=== PATIENT | male | born 1955 | race Caucasian/White ===

== ENCOUNTER 2017-10-08 09:55 | Day surgery (SDC) | payer OTHER ==
[~2017-10-08] VITALS: Ht 182.9 cm; Wt 127.9 kg
[~2017-10-08 09:55] MED LIST: ? HTN MED; ALLO300 PO; AMLO5 PO; Aldactone50 MG PO; Ativan1 MG PO; CARV3.125 PO; CEPH500 PO; CITA20 PO; COLE625 PO; CYAN100 PO; Diovan320 MG PO; FEBU40TA PO; FLUO20 PO; FOLI1 PO; GABA600 PO; HYDACE5 PO; HYDCHL25 PO; HYDR1TAB94 PO; INDO50 PO; LISI20 PO; LORA2 PO; MULVIT; Multivitamin1 EAC2 PO; OMEP10ER PO; OMEP20ER PO; PANT40 PO; PERI2 PO; PERI4 PO; SPIR50 PO; SUBOXONE 8 MG-1 EACH SL; SULTRIDS PO; THIA100 PO; TRAZ50 PO; VALS80 PO; VITAMIN B-1 PO; [UNRECOGNIZED DRUG - REMARK]; [UNRECOGNIZED DRUG - REMARK]
== END 2017-10-08 12:00 | disposition home or self-care (01) ==
LOC: ORSCSDS 09:55
PROVIDERS: Internal Medicine Gastroenterology
PROC: 0DJD8ZZ Inspection of Lower Intestinal Tract, Via Natural or Artificial Opening Endoscopic (ICD-10-PCS; principal; 2017-10-08 11:15)
PROC: 0DJ08ZZ Inspection of Upper Intestinal Tract, Via Natural or Artificial Opening Endoscopic (ICD-10-PCS; principal; 2017-10-08 11:15)
DX: K25.9 Gastric ulcer, unspecified as acute or chronic, without hemorrhage or perforation (principal); B19.20 Unspecified viral hepatitis C without hepatic coma; Z86.010 Personal history of colon polyps; K57.30 Diverticulosis of large intestine without perforation or abscess without bleeding; K64.8 Other hemorrhoids; G47.33 Obstructive sleep apnea (adult) (pediatric); I10 Essential (primary) hypertension; E78.5 Hyperlipidemia, unspecified; Z87.891 Personal history of nicotine dependence; E66.01 Morbid (severe) obesity due to excess calories; Z68.39 Body mass index [BMI] 39.0-39.9, adult
CPT/HCPCS: J1980; J2250

== ENCOUNTER 2019-08-24 22:06 | Emergency (ER) | payer OTHER ==
[~2019-08-24] VITALS: Ht 182.9 cm; Wt 131.5 kg
[2019-08-24 22:28] LABS: BASOPHILS ABSOLUTE AUTO 0.02 K/mm3 (0.00-0.23); BASOPHILS PERCENT AUTO 0 % (0-2); EOSINOPHILS ABSOLUTE AUTO 0.16 K/mm3 (0.00-0.68); EOSINOPHILS PERCENT AUTO 1 % (0-6); Hematocrit 50.1 % (37.0-53.0); Hemoglobin 17.3 g/dL (13.5-17.5); IMMATURE GRAN ABSOLUTE AUTO 0.04 K/mm3 (0.00-0.10); IMMATURE GRAN PERCENT AUTO 0 % (0-1); LYMPHOCYTES ABSOLUTE AUTO 6.36 K/mm3 (0.84-5.20); LYMPHOCYTES PERCENT AUTO 51 % (21-46); MONOCYTES ABSOLUTE AUTO 0.66 K/mm3 (0.16-1.47); MONOCYTES PERCENT AUTO 5 % (4-13); Mean Corpuscular HGB Conc 34.5 g/dL (31.5-36.5); Mean Corpuscular Volume 93 fL (80-100); Mean Platelet Volume 10.3 fL (9.1-12.4); NEUTROPHILS ABSOLUTE AUTO 5.16 K/mm3 (1.96-9.15); NEUTROPHILS PERCENT AUTO 42 % (41-73); Platelet Count 210 K/mm3 (150-400); RDW Coefficient Variation 12.5 % (11.7-14.2); RDW Standard Deviation 42.3 fL (35.1-46.3); Red Blood Cell Count 5.41 M/mm3 (4.30-5.90)
[2019-08-24] MEDS ORDERED: VENL150ER PO (22:39)
[2019-08-24] MEDS ORDERED: VENL75ER (22:39)
[2019-08-24] MEDS ORDERED: Aspir 8181 MG PO (22:39)
[2019-08-24] MEDS ORDERED: Fish Oil 10001000 MG GT (22:40)
[2019-08-24] MEDS ORDERED: BUPR150ER PO (22:40)
[2019-08-24] MEDS ORDERED: ATOR10 (22:40)
[2019-08-24] MEDS ORDERED: VIT D (22:42)
[2019-08-24] MEDS ORDERED: OSTEO BI-FLEX1 EACH PO (22:42)
[2019-08-24 22:52] LABS: Alanine Aminotransfer (ALT/SGP 26 U/L (12-78); Albumin, Blood 3.5 g/dL (3.4-5.0); Albumin/Globulin Ratio 1.1 (0.8-1.8); Alk Phos 65 U/L (50-136); Anion Gap 10 mmol/L (6-16); Aspartate Aminotrans (AST/SGOT 27 U/L (12-37); Bilirubin, Total 0.4 mg/dL (0.1-1.0); Blood Urea Nitrogen 20 mg/dL (8-24); Bun/Creatinine Ratio 17.9 (12.0-20.0); CO2, Blood 25 mmol/L (21-32); Calcium, Blood 8.7 mg/dL (8.5-10.1); Chloride, Blood 105 mmol/L (98-108); Creatinine, Blood 1.12 mg/dL (0.60-1.20); Globulin, Blood 3.2 g/dL (2.2-4.0); Glomerular Filtration Rate >60 (60-); Glucose, Blood 185 mg/dL (70-99); Potassium, Blood 3.8 mmol/L (3.5-5.5); Sodium, Blood 140 mmol/L (136-145); Total Protein, Blood 6.7 g/dL (6.4-8.2)
[2019-08-25] MEDS ORDERED: BENADRYL25 MG PO (00:36)
[2019-08-25] MEDS ORDERED: EPIPEN 2-P0.3 MG/0.3 IM (00:36)
== END 2019-08-25 01:20 | disposition home or self-care (01) ==
LOC: ER 22:06
PROVIDERS: Emergency Medicine
DX: T78.2XXA Anaphylactic shock, unspecified, initial encounter (principal); R11.2 Nausea with vomiting, unspecified; I10 Essential (primary) hypertension; E78.5 Hyperlipidemia, unspecified; F41.8 Other specified anxiety disorders; Z88.5 Allergy status to narcotic agent; Z79.899 Other long term (current) drug therapy; Z79.82 Long term (current) use of aspirin
CPT/HCPCS: 80053; 85025; 93005; 93010; 96361; 96374; 96375; 99285-25; J2405; J2930; J7030

== ENCOUNTER 2019-09-07 22:53 | Emergency (ER) | payer OTHER ==
[~2019-09-07] VITALS: Ht 182.9 cm; Wt 129.3 kg
[~2019-09-07 22:53] MED LIST changes: +ATOR10; +Aspir 8181 MG PO; +BENADRYL25 MG PO; +BUPR150ER PO; +EPIPEN 2-P0.3 MG/0.3 IM; +Fish Oil 10001000 MG GT; +OSTEO BI-FLEX1 EACH PO; +VENL150ER PO; +VENL75ER; +VIT D
[2019-09-07 23:27] LABS: BASOPHILS ABSOLUTE AUTO 0.04 K/mm3 (0.00-0.23); BASOPHILS PERCENT AUTO 0 % (0-2); EOSINOPHILS ABSOLUTE AUTO 0.15 K/mm3 (0.00-0.68); EOSINOPHILS PERCENT AUTO 1 % (0-6); Hematocrit 53.5 % (37.0-53.0); IMMATURE GRAN PERCENT AUTO 1 % (0-1); LYMPHOCYTES ABSOLUTE AUTO 6.09 K/mm3 (0.84-5.20); LYMPHOCYTES PERCENT AUTO 44 % (21-46); MONOCYTES ABSOLUTE AUTO 0.63 K/mm3 (0.16-1.47); MONOCYTES PERCENT AUTO 5 % (4-13); Mean Corpuscular HGB 31.9 pg (26.0-34.0); Mean Corpuscular HGB Conc 33.6 g/dL (31.5-36.5); Mean Corpuscular Volume 95 fL (80-100); NEUTROPHILS ABSOLUTE AUTO 6.88 K/mm3 (1.96-9.15); NEUTROPHILS PERCENT AUTO 50 % (41-73); Platelet Count 217 K/mm3 (150-400); RDW Coefficient Variation 13.1 % (11.7-14.2); RDW Standard Deviation 45.4 fL (35.1-46.3); Red Blood Cell Count 5.65 M/mm3 (4.30-5.90); White Blood Cell Count 13.89 K/mm3 (4.00-11.30)
[2019-09-07 23:48] LABS: Alanine Aminotransfer (ALT/SGP 32 U/L (12-78); Albumin, Blood 3.2 g/dL (3.4-5.0); Albumin/Globulin Ratio 0.9 (0.8-1.8); Alk Phos 65 U/L (50-136); Anion Gap 9 mmol/L (6-16); Aspartate Aminotrans (AST/SGOT 35 U/L (12-37); Bilirubin, Total 0.4 mg/dL (0.1-1.0); Blood Urea Nitrogen 20 mg/dL (8-24); Bun/Creatinine Ratio 19.4 (12.0-20.0); CO2, Blood 27 mmol/L (21-32); Calcium, Blood 8.7 mg/dL (8.5-10.1); Chloride, Blood 102 mmol/L (98-108); Creatinine, Blood 1.03 mg/dL (0.60-1.20); Globulin, Blood 3.4 g/dL (2.2-4.0); Glomerular Filtration Rate >60 (60-); Glucose, Blood 229 mg/dL (70-99); Potassium, Blood 4.1 mmol/L (3.5-5.5); Sodium, Blood 138 mmol/L (136-145); Total Protein, Blood 6.6 g/dL (6.4-8.2); Troponin I <0.015 ng/mL (0.000-0.040)
[2019-09-08] MEDS ORDERED: Prednisone20 MG PO (00:43)
[2019-09-08] MEDS ORDERED: EPIPEN 2-P0.3 MG/0.3 IM (00:43)
== END 2019-09-08 00:51 | disposition home or self-care (01) ==
LOC: ER 22:53
PROVIDERS: Emergency Medicine
DX: T78.2XXA Anaphylactic shock, unspecified, initial encounter (principal); I10 Essential (primary) hypertension; F41.8 Other specified anxiety disorders; E78.5 Hyperlipidemia, unspecified; F17.200 Nicotine dependence, unspecified, uncomplicated; Z88.5 Allergy status to narcotic agent; Z79.899 Other long term (current) drug therapy; Z79.82 Long term (current) use of aspirin
CPT/HCPCS: 36415; 80053; 84484; 85025; 93005; 93010; 94640; 96374; 96375; 99285-25; A9270-GY; J1200; J2405; J2930

== ENCOUNTER 2021-01-24 12:03 | Emergency (ER) | payer OTHER ==
[~2021-01-24] VITALS: Ht 182.9 cm; Wt 118.4 kg
[~2021-01-24 12:03] MED LIST changes: +ATOR20 PO; +BUPROPION XL150 M1 PO; +CLONIDINE PO; +COLCHICINE0.6 MG PO; +FLUZONE QU SC; +Prednisone20 MG PO; +TAMS.4ER PO; +TESTOSTERONE75 G1 TD; +TRAZ150T57 PO; +VENLAFAXINE HCL PO
[2021-01-24] MEDS ORDERED: Norco 5-325 Ta1 EACH PO (13:59)
== END 2021-01-24 14:09 | disposition home or self-care (01) ==
LOC: ER 12:03
DX: M25.552 Pain in left hip (principal); G89.29 Other chronic pain; I10 Essential (primary) hypertension; E78.5 Hyperlipidemia, unspecified; Z79.899 Other long term (current) drug therapy; Z87.891 Personal history of nicotine dependence
CPT/HCPCS: 93005; 93010; 99283-25; A9270

== ENCOUNTER → 2021-03-02 | Outpatient (CLI) | payer OTHER ==
[~2021-03-02] MED LIST changes: +ASPI81CH PO; +FISH OIL 1,2001 EAC1 PO; +HYDR10; +MULTI-VITAMIN1 EAC2 PO; +MULVITB PO; +Norco 5-325 Ta1 EACH PO; +Percocet 5-3251 EACH PO; +Vitamin D2000 UNIT PO; +XARELTO10 M5 PO
[2021-03-10 17:08] LABS: CARBOXY-THC 76 (.)
== END | disposition home or self-care (01) ==
LOC: LAB SHORT 09:25
PROVIDERS: Hospitalist
DX: G62.1 Alcoholic polyneuropathy (principal); G89.4 Chronic pain syndrome
CPT/HCPCS: G0480

== ENCOUNTER 2021-03-15 09:42 | Day surgery (SDC) | payer OTHER, MEDICARE ==
[~2021-03-15] VITALS: Ht 182.9 cm; Wt 121.9 kg
[~2021-03-15 09:42] MED LIST changes: -ASPI81CH PO; -FISH OIL 1,2001 EAC1 PO; -HYDR10; -MULTI-VITAMIN1 EAC2 PO; -MULVITB PO; -Percocet 5-3251 EACH PO; -Vitamin D2000 UNIT PO; -XARELTO10 M5 PO
[2021-03-15] MEDS ORDERED: HYDR10 (10:52)
[2021-03-15] MEDS ORDERED: MULVITB PO (10:53)
[2021-03-15] MEDS ORDERED: ASPI81CH PO (10:53)
[2021-03-15] MEDS ORDERED: MULTI-VITAMIN1 EAC2 PO (10:54)
[2021-03-15] MEDS ORDERED: Vitamin D2000 UNIT PO (10:54)
[2021-03-15] MEDS ORDERED: FISH OIL 1,2001 EAC1 PO (10:54)
--- NOTE | 2021-03-15 11:17 | NUR ---
PT INTO SDS VIA W/C. History, Chart, Medications and Allergies reviewed before start of procedure. Lungs clear T/O to Auscultation. Patient confirms NPO status and agrees with scheduled surgery. Pre-Op teaching done. Pt verbalizes understanding.
--- NOTE | 2021-03-15 13:33 | NUR ---
TOOK OVER PATIENT CARE AFTER REPORT WAS RECEIVED.
--- NOTE | 2021-03-15 15:27 | NUR ---
03/15/21 1527 Melanie Connor BOTH SPINAL AND GENERAL ANESTHESIA USED IN THIS CASE
--- NOTE | 2021-03-15 17:30 | NUR ---
PT ARRIVED TO THE ROOM AT 1700. PT ALERT AND ORIENTED. VSS. PT HAS DECREASED SENSATION AND MOVEMENT TO BLE BUT STARTING TO BE ABLE TO WIGGLE HIS TOES. DRESSING TO L HIP C/D/I. WILL MONITOR UNTIL REPORT TO HUSSEIN MONTAGUE.
--- NOTE | 2021-03-15 19:19 | NUR ---
SHIFT SUMMARY PT IS POD#0 FROM L JOCELYN WITH DR. WILDER. PT HAD SPINAL ANESTHESIA AND IS REGAINING MOVEMENT AND SENSATION. PT IS TOLERTING PO WELL. PT WEANED TO 1L O2 FROM 2L. VSS. REPORT GIVEN TO HUSSEIN MONTAGUE.
--- NOTE | 2021-03-16 02:46 | NUR ---
DURING PHENERGAN ADMINISTRATION AT 0121, IV BECAME INFILTRATED. 12.5MG OF PHENERGAN WAS DILUTED WITH 10ML OF NS AND APPROX 2ML OF FLUID WAS ADMINISTERED. PT REPORTED A MILD BURNING SENSATION DURING THIS TIME, HOWEVER CURRENTLY DENIES PAIN TO THE SITE. IV TAKEN OUT, EXTREMITY ELEVATED AND WARM BLANKET APPLIED. SWELLING TO R ARM OUTLINED IN PEN. SWELLING TO INFILTRATION SITE APPEARS TO BE DECREASING IN SIZE. CAP REFILL WNL. COLOR AND TEMPERATURE OF SKIN W/O CHANGES. PT DENIES N/T. RT ARM BEING CLOSELY MONITORED.
[2021-03-16 04:29] LABS: BASOPHILS ABSOLUTE AUTO 0.02 K/mm3 (0.00-0.23); BASOPHILS PERCENT AUTO 0 % (0-2); EOSINOPHILS PERCENT AUTO 0 % (0-6); Hematocrit 34.3 % (37.0-53.0); IMMATURE GRAN ABSOLUTE AUTO 0.08 K/mm3 (0.00-0.10); IMMATURE GRAN PERCENT AUTO 1 % (0-1); LYMPHOCYTES ABSOLUTE AUTO 1.52 K/mm3 (0.84-5.20); LYMPHOCYTES PERCENT AUTO 9 % (21-46); MONOCYTES PERCENT AUTO 6 % (4-13); Mean Corpuscular Volume 94 fL (80-100); Mean Platelet Volume 9.8 fL (9.1-12.4); NEUTROPHILS ABSOLUTE AUTO 13.55 K/mm3 (1.96-9.15); NEUTROPHILS PERCENT AUTO 84 % (41-73); Platelet Count 176 K/mm3 (150-400); RDW Coefficient Variation 13.1 % (11.7-14.2); RDW Standard Deviation 44.9 fL (35.1-46.3); Red Blood Cell Count 3.64 M/mm3 (4.30-5.90); White Blood Cell Count 16.17 K/mm3 (4.00-11.30)
[2021-03-16 04:55] LABS: Anion Gap 6 mmol/L (6-16); Blood Urea Nitrogen 16 mg/dL (8-24); Bun/Creatinine Ratio 16.5 (12.0-20.0); CO2, Blood 26 mmol/L (21-32); Chloride, Blood 105 mmol/L (98-108); Creatinine, Blood 0.97 mg/dL (0.60-1.20); Glomerular Filtration Rate >60 (60-); Glucose, Blood 127 mg/dL (70-99); Sodium, Blood 137 mmol/L (136-145)
--- NOTE | 2021-03-16 05:30 | NUR ---
SHIFT SUMMARY: PT POD#1 FOR A LEFT JOCELYN. AQUACEL DRESSING C/D/I WITH POLAR PACK IN PLACE. PAIN DIFFICULT TO MANAGE FIRST HALF OF SHIFT. PT BEING MEDICATED WITH 10MG OXYCODONE, 0.5MG DILAUDID AND SCHEDULED TORADOL+TYLENOL. PT FEELING BETTER THIS MORNING AND IS RATING PAIN 4/10 COMPARED TO 8/10 EARLIER. PT UNABLE TO AMBULATE IN BEGINNING OF SHIFT D/T DECREASED SENSATION+MOVEMENT TO LEFT LEG. PT NOW REPORTS FULL SENSATION. ABLE TO WIGGLE TOES. CAP REFILL WNL. ABLE TO AMBULATE TO CHAIR WITH 1 ASSIST AND FWW+GB. CPAP IN PLACE. PULSE OX AT BEDSIDE. RT ARM APPEARS WNL THIS MORNING W/O ANY SWELLING. SMALL BRUISE NOTED AT INFILTRATION SITE.
[2021-03-16] MEDS ORDERED: XARELTO10 M5 PO (10:51)
[2021-03-16] MEDS ORDERED: Percocet 5-3251 EACH PO (10:52)
--- NOTE | 2021-03-16 11:30 | NUR ---
DISCHARGE SUMMARY PT A&OX4, VSS, FABIÁN PO, VOIDING, AMB W/FWW & GB, PAIN MANAGED PER EMAR. LEFT FLOOR VIA WC WITH FIELD ARTILLERY BASIC TO GO HOME WITH , WITH ALL PERSONAL POSSESSIONS INCLUDING DC PACKET AND NARC SCRIPT AND XARELTO SCRIPT. DC INSTRUCTIONS PROVIDED. PT REP UNDERSTANDING THOSE INSTRUCTIONS INCLUDING FU WITH SURGEON, OK TO SHOWER, NO TUB/JACUZZI, ICE AND ELEVATE AT REST W/SHORT FREQUENT AMBULATION, DRESSING CHANGES 1 WK/PRN. IV DC'D.
== END 2021-03-16 12:32 | disposition home or self-care (01) ==
LOC: ORSCMMR 09:42 → ORD 14:00 → SURS 17:53 → ORSCMMR 03-16 12:32
PROVIDERS: Orthopaedic Surgery
PROC: 0SRB0JZ Replacement of Left Hip Joint with Synthetic Substitute, Open Approach (ICD-10-PCS; principal; 2021-03-15 14:00)
DX: M16.12 Unilateral primary osteoarthritis, left hip (principal); I10 Essential (primary) hypertension; Z87.891 Personal history of nicotine dependence; G47.33 Obstructive sleep apnea (adult) (pediatric); Z79.899 Other long term (current) drug therapy; E66.01 Morbid (severe) obesity due to excess calories; Z68.36 Body mass index [BMI] 36.0-36.9, adult; Z79.82 Long term (current) use of aspirin
CPT/HCPCS: 72170; 80048; 85025; 94660; 94762; 97110; 97116; 97162; 97530; A9270; C1776; J0171; J0690; J0735; J1100; J1170; J1885; J2250; J2405; J2704; J2795; J3010; J7120

== ENCOUNTER 2022-06-16 06:17 | Day surgery (SDC) | payer OTHER ==
[~2022-06-16] VITALS: Ht 182.9 cm; Wt 13.0 kg
[~2022-06-16 06:17] MED LIST changes: +ASPI81CH PO; +FISH OIL 1,2001 EAC1 PO; +HYDR10; +MULTI-VITAMIN1 EAC2 PO; +MULVITB PO; +Percocet 5-3251 EACH PO; +Vitamin D2000 UNIT PO; +XARELTO10 M5 PO
--- NOTE | 2022-06-16 07:50 | NUR ---
06/16/22 0750 MARSHALL CORNELL 0.05MG OF EPI (1MG/1ML) ADDED TO 10MLS OF BUPIVACAINE 0.25% TO CREATE A LOCAL SOLUTION OF BUPIVACAINE 0.25% WITH EPI 1:200,000. LOCAL SOLUTION POURED ONTO STERILE FIELD FOR USE DURING CASE.
== END 2022-06-16 09:35 | disposition home or self-care (01) ==
LOC: ORSCSDS 06:17
PROVIDERS: Orthopaedic Surgery
PROC: 01N40ZZ Release Ulnar Nerve, Open Approach (ICD-10-PCS; principal; 2022-06-16 07:30)
DX: G56.22 Lesion of ulnar nerve, left upper limb (principal); I10 Essential (primary) hypertension; K21.9 Gastro-esophageal reflux disease without esophagitis; E66.9 Obesity, unspecified; Z68.36 Body mass index [BMI] 36.0-36.9, adult; Z87.891 Personal history of nicotine dependence; Z79.899 Other long term (current) drug therapy
CPT/HCPCS: J0171; J0690; J1100; J1885; J2250; J2370; J2405; J2704; J3010; J7120